=== PATIENT | female | born 1950 | race Caucasian/White ===

== ENCOUNTER 2017-08-25 11:04 | Day surgery (SDC) | payer BC, MEDICARE ==
[2017-08-24 08:54] VITALS: BMI 51.0
[2017-08-25] MEDS ORDERED: Midazolam HCl 2 mg/2 ml Vial ONE ×2 (14:19→15:24)
== END 2017-08-25 17:06 | disposition home or self-care (01) ==
LOC: SDC/OP 11:04
DX: M54.16 Radiculopathy, lumbar region (principal)
CPT/HCPCS: 36415; 82565; J2250

== ENCOUNTER 2021-10-03 19:25 | Emergency (ER) | payer MEDICARE, OTHER ==
[2021-10-03] MEDS ORDERED: Ketorolac Tromethamine 30 MG/ML VIAL ONE (20:30)
== END 2021-10-03 21:20 | disposition home or self-care (01) ==
LOC: ERS 19:25
DX: S09.90XA Unspecified injury of head, initial encounter (principal); S83.422A Sprain of lateral collateral ligament of left knee, initial encounter; W22.8XXA Striking against or struck by other objects, initial encounter; Y93.02 Activity, running; Z79.899 Other long term (current) drug therapy
CPT/HCPCS: 70450; 96372; J1885